=== PATIENT | male | born 1990 | race Caucasian/White ===

== ENCOUNTER 2016-09-17 23:36 | Emergency (ER) | payer SELFPAY ==
[~2016-09-17 23:36] MED LIST: FLEXERIL 1010 MG/TAB PO; IBUPROFEN800 MG PO; LORTAB 7.5/5001 TA1 PO; NAPROSYN500 M1 PO; NORCO 325 MG-51 TAB PO
[2016-09-18] MEDS ORDERED: SEPTRA DS 8001 TAB PO (03:05)
[2016-09-18 03:55] VITALS: BP 114/87
== END 2016-09-18 03:58 | disposition home or self-care (01) ==
LOC: ED 23:36
DX: K52.9 Noninfective gastroenteritis and colitis, unspecified (principal); N39.0 Urinary tract infection, site not specified
CPT/HCPCS: J1885; J1956; J2060; J7030; Q9967

== ENCOUNTER 2017-04-26 14:02 | Emergency (ER) | payer SELFPAY ==
[~2017-04-26] VITALS: Ht 177.8 cm; Wt 113.6 kg
[~2017-04-26 14:02] MED LIST changes: +SEPTRA DS 8001 TAB PO
[2017-04-26] MEDS ORDERED: ZYRTEC10 M3 PO (14:36)
[2017-04-26] MEDS ORDERED: AMOXICILLIN875 MG PO (14:36)
[2017-04-26 14:42] VITALS: BP 156/120
== END 2017-04-26 14:40 | disposition home or self-care (01) ==
LOC: ED 14:02
DX: H66.93 Otitis media, unspecified, bilateral (principal); J06.9 Acute upper respiratory infection, unspecified; F17.200 Nicotine dependence, unspecified, uncomplicated; Z53.21 Procedure and treatment not carried out due to patient leaving prior to being seen by health care provider; T78.3XXA Angioneurotic edema, initial encounter; R00.0 Tachycardia, unspecified; R03.0 Elevated blood-pressure reading, without diagnosis of hypertension; Z88.5 Allergy status to narcotic agent

== ENCOUNTER 2018-04-15 05:35 | Emergency (ER) | payer SELFPAY ==
[~2018-04-15 05:35] MED LIST changes: +AMOXICILLIN875 MG PO; +ZYRTEC10 M3 PO
[2018-04-15 06:39] LABS: ALBUMIN 3.9 g/dL (3.5-5.0); CALCIUM 8.9 mg/dL (8.4-10.2); POTASSIUM 3.9 mmol/L (3.6-5.0); TOTAL BILIRUBIN 0.8 mg/dL (0.2-1.3); TOTAL PROTEIN 6.9 g/dL (6.3-8.2)
[2018-04-15 06:41] LABS: HEMATOCRIT 40.9 % (42.0-52.0); HEMOGLOBIN 13.7 g/dL (13.5-18.0); MEAN CELL VOLUME 86 fl (78-100); MEAN CORPUSCULAR HEMOGLOBIN 29 pg (27-31); MEAN CORPUSCULAR HGB CONC 34 g/dL (33-37); PLATELET COUNT 228 K/mm3 (130-400); RED BLOOD COUNT 4.74 M/mm3 (4.20-5.60); RED CELL DISTRIBUTION WIDTH 13.1 % (11.5-14.5); WHITE BLOOD COUNT 15.2 K/mm3 (4.8-10.8)
[2018-04-15 06:54] LABS: D-DIMER 0.65 mg/L FEU (0.15-0.50); LYMPHOCYTE 7 % (20-51); MONOCYTE 6 % (3-10); NEUTROPHILS 86 % (42-75)
[2018-04-15] MEDS ORDERED: BACTRIM DS TAB1 EACH PO (09:10)
[2018-04-15] MEDS ORDERED: CEPHALEXIN500 M1 PO (09:10)
[2018-04-15 09:26] VITALS: BP 100/63
== END 2018-04-15 09:18 | disposition home or self-care (01) ==
LOC: ED 05:35
PROVIDERS: Family Medicine
DX: L03.113 Cellulitis of right upper limb (principal); F17.200 Nicotine dependence, unspecified, uncomplicated
CPT/HCPCS: J1885

== ENCOUNTER → 2022-08-17 | Outpatient (CLI) | payer SELFPAY ==
[~2022-08-17] MED LIST changes: +BACTRIM DS TAB1 EACH PO; +CEPHALEXIN500 M1 PO
== END ==
LOC: LAB 16:40
DX: F52.21 Male erectile disorder (principal); Z20.2 Contact with and (suspected) exposure to infections with a predominantly sexual mode of transmission

== ENCOUNTER → 2023-01-30 | Outpatient (CLI) | payer SELFPAY | LOC: LAB 11:56 | DX: R05.9 Cough, unspecified (principal); Z20.822 Contact with and (suspected) exposure to COVID-19; Z20.2 Contact with and (suspected) exposure to infections with a predominantly sexual mode of transmission ==

== ENCOUNTER 2024-04-13 03:40 | Emergency (ER) | payer SELFPAY ==
[~2024-04-13] VITALS: Ht 177.8 cm; Wt 109.1 kg
[2024-04-13] MEDS ORDERED: NORCO 325 MG-51 TA1 PO (07:00)
[2024-04-13] MEDS ORDERED: AMOXICILLIN AND1 TA2 PO (07:00)
[2024-04-13 07:14] VITALS: BP 132/102
[2024-04-13] MEDS ORDERED: Home HYDROcodone/Acetaminophen 5/325 MG #4 TABS/PACK PO ONE (07:15)
[2024-04-13] MEDS ORDERED: Amoxicillin/Clavulanate K+ 875/125 MG TAB PO ONE (07:15)
== END 2024-04-13 07:26 | disposition home or self-care (01) ==
LOC: ED 06:40
DX: H66.91 Otitis media, unspecified, right ear (principal)